=== PATIENT | male | born 1995 | race Caucasian/White ===

== ENCOUNTER 2024-05-26 10:05 | Outpatient (OUT) | payer OTHER, SELFPAY ==
[2024-05-26 10:53] LABS: Valproic Acid 54.9 ug/mL (50.0-100.0)
== END 2024-05-26 10:06 | disposition home or self-care (01) ==
LOC: LAB 10:10
PROVIDERS: Visit Provider Nurse Practitioner Primary Care
DX: Z79.811 Long term (current) use of aromatase inhibitors (principal)
CPT/HCPCS: 36415; 80164